=== PATIENT | male | born 1935 | race Caucasian/White ===

== ENCOUNTER 2018-11-19 00:22 | Emergency (ER) | payer OTHER ==
[~2018-11-19] VITALS: Ht 180.3 cm; Wt 95.3 kg
--- NOTE | ~2018-11-19 | EKG ---
[place], [place] ELECTROCARDIOGRAM REPORT NAME: NICOLA GIRALDO UNIT #: [id number] ROOM: DOCTOR: EPIPHANY DRAFT REPORT BIRTHDATE: [birth year] [facility] Test Date: 2018-11-19 Test Time: 00:42:20 Pat Name: NICOLA GIRALDO Department: ER Room: 3 Gender: M Doper: Alyse Champion : 1935 Requested By: KRISTEN PALUMBO Order Number: [id number] Reading MD: Dio Pathak MD Measurements Intervals [place] Rate: 71 P: 59 NV: 170 QRS: 26 QRSD: 93 T: 72 QT: 423 QTc: 460 Interpretive Statements Sinus rhythm Abnormal R-wave progression, late transition Electronically Signed On 11-20-2018 12:00:28 PDT by Dio Pathak MD CM:EKGRPT:ELECTROCARDIOGRAM REPORT [id number] KRISTEN ALSTON DRAFT REPORT KRISTEN PALUMBO DO
[~2018-11-19 00:22] MED LIST: ALLOPURINOL300 MG PO; AMLODIPINE BESYL5 MG PO; ASPIRIN CHEWABL81 MG PO; ATORVASTATIN CA20 M1 PO; BD ULTRA-FINE1 EAC1 MC; BENAZEPRIL20 MG PO; CELEXA20 MG PO; CITALOPRAM20 MG PO; DAILY VALUE1 EACH PO; DEPAKOTE250 MG PO; DIVALPROEX SOD250 MG PO; EXELON13.3 MG/21 T; GEODON20 MG PO; HUMALOG MI100 UNIT/1 SQ; HYDRALAZINE HYD50 MG PO; HYDROCHLOROTHIA25 M1 PO; MECLIZINE HYD12.5 MG PO; MEMANTINE HCL10 MG PO; NOVOLOG FL100 UNIT/2 SQ; OMEPRAZOLE40 MG PO; ONETOUCH ULTRA1 EACH MC; OSTERA TABLET1 EACH PO; SIMVASTATIN40 MG PO; SINEMET 25-1001 EACH PO; SLOW-MAG71.5 MG PO; Sinemet Cr 25-11 TAB PO; TEMAZEPAM15 M1 PO; VITAMIN B-121000 MC2 PO; VITAMIN D31000 UNI1 PO; [UNRECOGNIZED DRUG - SUPPLY] MC
[2018-11-19 00:55] LABS: BASO # 0.1 10*3/uL (0.0-0.1); BASO % 0.9 % (0.0-1.0); EOS # 0.6 10*3/uL (0.0-0.4); EOS % 6.2 % (1.0-4.0); HEMATOCRIT 32.7 % (42.0-52.0); HEMOGLOBIN 10.9 g/dl (14.0-18.0); LYMPH # 2.7 10*3/uL (1.3-4.4); LYMPH % 30.3 % (27.0-41.0); MEAN CELL VOLUME 92.9 fl (80.0-94.0); MEAN CORPUSCULAR HGB CONC 33.3 g/dl (33.0-37.0); MEAN PLATELET VOLUME 10.1 fl (9.6-12.3); MONO # 0.9 10*3/uL (0.1-1.0); MONO % 10.4 % (3.0-9.0); NEUT # 4.6 10*3/uL (2.3-7.9); PLATELET COUNT AUTOMATED 158 10*3/uL (130-400); RED BLOOD COUNT 3.52 10*6/uL (4.50-5.90); RED CELL DISTRI WIDTH 14.9 % (0-14.5); WHITE BLOOD COUNT 8.8 10*3/uL (4.8-10.8)
[2018-11-19 01:14] LABS: ALBUMIN 3.2 gm/dl (3.1-4.5); ALKALINE PHOSPHATASE 70 U/L (45-117); BUN 30 mg/dl (7-24); CHLORIDE 107 mmol/L (98-107); CREATININE 1.57 mg/dL (0.70-1.30); POTASSIUM 4.3 mmol/L (3.5-5.1); SODIUM 144 mmol/L (136-145); TOTAL PROTEIN 6.6 gm/dL (6.4-8.2)
[2018-11-19 01:30] LABS: SGOT/AST 16 IU/L (3-35); SGPT/ALT 6 U/L (12-78)
[2018-11-19 01:32] LABS: ACETAMINOPHEN (TYLENOL) < 5.0 ug/ml (10-30); ETHYL ALCOHOL < 3.0 mg/dl (<3)
[2018-11-19 02:21] LABS: BILIRUBIN NEGATIVE (NEGATIVE); BLOOD NEGATIVE (NEGATIVE); CLARITY CLEAR (CLEAR); COLOR YELLOW (YELLOW); GLUCOSE 1+ (NEGATIVE); KETONE NEGATIVE (NEGATIVE); LEUKO ESTERASE NEGATIVE (NEGATIVE); NITRITE NEGATIVE (NEGATIVE); PH 6.5 (5.0-9.0); SPECIFIC GRAVITY 1.015 (1.005-1.030); UROBILINOGEN 0.2 E.U./dl (0.2-1.0)
[2018-11-19 02:28] LABS: URINE AMPHETAMINES < 1000 (1000ng/ml); URINE BARBITURATES < 200 (200ng/ml); URINE BENZODIAZEPINES < 200 (200ng/ml); URINE CANNABINOIDS (THC) < 50 (50ng/ml); URINE COCAINE < 300 (300ng/ml); URINE METHADONE < 300 (300ng/ml); URINE OPIATES < 300 (300ng/ml); URINE PHENCYCLIDINE < 25 (25ng/ml)
[2018-11-19 02:30] LABS: RBC 0-2 rbc/hpf (0-2); WBC 0-2 wbc/hpf (0-5)
== END 2018-11-19 03:30 | disposition other institution (70) ==
LOC: ED 00:22
PROVIDERS: Emergency Medicine
DX: G30.9 Alzheimer's disease, unspecified (principal); F02.80 Dementia in other diseases classified elsewhere, unspecified severity, without behavioral disturbance, psychotic disturbance, mood disturbance, and anxiety; E11.22 Type 2 diabetes mellitus with diabetic chronic kidney disease; I12.9 Hypertensive chronic kidney disease with stage 1 through stage 4 chronic kidney disease, or unspecified chronic kidney disease; N18.9 Chronic kidney disease, unspecified; E78.5 Hyperlipidemia, unspecified; Z87.891 Personal history of nicotine dependence; Z79.899 Other long term (current) drug therapy; Z79.4 Long term (current) use of insulin